=== PATIENT | female | born 1945 | race Caucasian/White ===

== ENCOUNTER → 2019-12-25 11:23 | Outpatient (BNVA) | payer MEDICARE, OTHER, SELFPAY | PROVIDERS: Family Provider Family Medicine; PCP Family Medicine; Visit Provider Urology | DX: N39.0 Urinary tract infection, site not specified (principal); N39.9 Disorder of urinary system, unspecified; N39.41 Urge incontinence | CPT/HCPCS: 81001 ==

== ENCOUNTER 2020-03-11 11:38 | Outpatient (RCR) | payer MEDICARE, OTHER, SELFPAY | END 2020-03-27 23:59 | disposition home or self-care (01) | LOC: SPT 11:38 | PROVIDERS: PCP Family Medicine; Referring Provider Family Medicine; Visit Provider Family Medicine | DX: M79.601 Pain in right arm (principal) | CPT/HCPCS: 97110; 97161 ==

== ENCOUNTER 2020-03-14 12:59 | Outpatient (CLI) | payer MEDICARE, OTHER, SELFPAY ==
[2020-03-14 13:12] VITALS: BP 119/70; PULSE 67; RESP 16; TEMP 37; O2SAT 97
[2020-03-14] MEDS: denosumab 60 mg SDV SUBCUT (13:23)
== END 2020-03-14 13:00 | disposition home or self-care (01) ==
LOC: RHEOACUTE 13:03
PROVIDERS: PCP Family Medicine; Visit Provider Internal Medicine Rheumatology
DX: M81.0 Age-related osteoporosis without current pathological fracture (principal)
CPT/HCPCS: 96372; J0897

== ENCOUNTER 2020-04-22 06:00 | Outpatient (RCR) | payer MEDICARE, OTHER, SELFPAY | END 2020-04-27 23:59 | disposition home or self-care (01) | LOC: SPT 06:00 | PROVIDERS: PCP Family Medicine; Referring Provider Family Medicine; Visit Provider Family Medicine | DX: M51.17 Intervertebral disc disorders with radiculopathy, lumbosacral region (principal) | CPT/HCPCS: 97161 ==

== ENCOUNTER 2020-12-23 14:07 | Outpatient (CLI) | payer MEDICARE, BC, SELFPAY ==
[2020-12-23 14:40] VITALS: BP 126/44; PULSE 70; RESP 16; O2SAT 98
[2020-12-23] MEDS: denosumab 60 mg SDV SUBCUT (14:43)
== END 2020-12-23 14:08 | disposition home or self-care (01) ==
PROVIDERS: PCP Family Medicine; Referring Provider Family Medicine; Visit Provider Family Medicine
DX: M81.0 Age-related osteoporosis without current pathological fracture (principal)
CPT/HCPCS: 96372; J0897

== ENCOUNTER 2021-07-02 11:15 | Outpatient (CLI) | payer MEDICARE, BC, SELFPAY ==
[2021-07-02 11:36] VITALS: BP 127/77; PULSE 69; RESP 18; TEMP 36.4; O2SAT 96
[2021-07-02] MEDS: denosumab 60 mg SDV SUBCUT (11:41)
[2021-07-02 11:48] VITALS: BP 131/78; PULSE 65; RESP 18; TEMP 36.3; O2SAT 99
== END 2021-07-02 11:16 | disposition home or self-care (01) ==
LOC: ONCMED 11:21
PROVIDERS: PCP Family Medicine; Visit Provider Family Medicine
DX: M81.0 Age-related osteoporosis without current pathological fracture (principal)
CPT/HCPCS: 96372; J0897

== ENCOUNTER 2022-01-08 09:13 | Outpatient (CLI) | payer MEDICARE, BC, SELFPAY ==
[2022-01-08 09:23] VITALS: BP 108/71; PULSE 66; RESP 18; TEMP 36.1; O2SAT 99
[2022-01-08] MEDS: denosumab 60 mg SDV SUBCUT (09:29)
[2022-01-08 09:36] VITALS: BP 119/74; PULSE 63; RESP 18; TEMP 36.2; O2SAT 98
== END 2022-01-08 09:14 | disposition home or self-care (01) ==
PROVIDERS: PCP Family Medicine; Referring Provider Family Medicine; Visit Provider Family Medicine
DX: M81.0 Age-related osteoporosis without current pathological fracture (principal)
CPT/HCPCS: 96372; J0897

== ENCOUNTER 2023-09-08 13:41 | Outpatient (CLI) | payer MEDICARE, SELFPAY ==
--- NOTE | 2023-09-08 13:46 | XR_ITS ---
WS: [id number] SCREENING DEXA SCAN [facility] CLINICAL INFORMATION: OSTEOPOROSIS COMPARISON: 2018 FINDINGS: The L1-L4 bone mineral density measures 1.100 g/cm2. This corresponds to a T score score of -0.7 and Z score of 1.3. Left femoral neck bone mineral density measures 0.891 g/cm2. This corresponds to a T score of -0.9 an d Z score of 1.2. Right femoral neck bone mineral density measures 0.879 g/cm2. This corresponds to a T score -1.0of an d Z score of 1.1. Mean femoral neck bone mineral density measures 0.885 g/cm2. This corresponds to a T score of -1.0 an d Z score of 1.1. IMPRESSION: Normal bone mineralization lumbar spine. Osteopenia femoral necks. Patient's FRAX calculated 10 year probability for major osteoporotic fracture is 21.3% and osteoporot ic hip fracture is 5.3%. Bone mineral density lumbar spine increased 2.6% Bone mineral density femoral necks increased 0.3%
== END 2023-09-08 13:42 | disposition home or self-care (01) ==
LOC: RAD 13:41
PROVIDERS: PCP Family Medicine; Visit Provider Family Medicine
DX: Z13.820 Encounter for screening for osteoporosis (principal); M81.0 Age-related osteoporosis without current pathological fracture; M85.852 Other specified disorders of bone density and structure, left thigh; M85.851 Other specified disorders of bone density and structure, right thigh
CPT/HCPCS: 77080